=== PATIENT | female | born 1960 | race Hispanic/Latino ===

== ENCOUNTER 2021-08-18 14:24 | Outpatient (CLI) | payer OTHER | END 2021-08-18 14:25 | disposition home or self-care (01) | LOC: NAV RAD 14:24 | PROVIDERS: ATTEND Family Medicine | DX: M54.2 Cervicalgia (principal); M25.562 Pain in left knee; M47.812 Spondylosis without myelopathy or radiculopathy, cervical region; M43.12 Spondylolisthesis, cervical region; M25.78 Osteophyte, vertebrae; Z98.1 Arthrodesis status | CPT/HCPCS: 72040 ==